=== PATIENT | female | born 1960 | race Caucasian/White ===

== ENCOUNTER 2025-06-03 22:12 | Emergency (ER) | payer MEDICAID ==
[~2025-06-03] VITALS: Ht 165.1 cm; Wt 58.1 kg
[2025-06-04] MEDS ORDERED: KETOROLAC TROMETHAMINE INJ 30 MG/ML VIAL ONE (00:18)
[2025-06-04] MEDS: KETOROLAC TROMETHAMINE INJ 30 MG/ML VIAL IM ONE (00:23)
[2025-06-04 02:15] VITALS: BP 132/74; TEMP 98.1; O2SAT 97
== END 2025-06-04 02:16 | disposition left against medical advice (07) ==
LOC: ER 22:17
DX: M25.562 Pain in left knee (principal); W18.39XA Other fall on same level, initial encounter; Y93.89 Activity, other specified; Y92.89 Other specified places as the place of occurrence of the external cause; Y99.8 Other external cause status
CPT/HCPCS: 73700-TC; J1885